=== PATIENT | female | born 1995 | race Caucasian/White ===

== ENCOUNTER 2019-12-01 12:25 | Outpatient (CLI) | payer OTHER, SELFPAY ==
--- NOTE | 2019-12-01 | US_ITS ---
WS: [id number] OBSTETRICAL ULTRASOUND COMPLETE HISTORY: ANATOMY COMPARISON: 09/13/2019 Single intrauterine gestation in Cephalic presentation. Cervix is Closed and normal length. Cervical length is 3.0 cm. Normal amount of amniotic fluid surrounds the fetus. Placenta: Posterior, no previa or abruption. Placenta grade 1 Heart: 144 BPM. Limited evaluation of four-chamber heart and outflow tracts. Anatomy: Intracranial structures and spine are poorly visualized due to position of the fetus. kidneys, stomach and urinary bladder are unremarkable. Abdominal wall, three-vessel cord and cord ins ertion site are normal. 4 extremities are present. profile: Limited. Gender: Female. measurements: BPD = 4.7 cm = 20w1d HC = 17.1 cm = 19w5d AC = 14.0 cm = 19w3d FL = 3.2 cm = 19w6d EFW: 304 g., Measurements are internally concordant. AGA by ultrasound: 19w6d MP by ultrasound: 04/20/2020 US/US OB >= 14 weeks fetus [id number] IMPRESSION: 1. Single intrauterine gestation of 19w6d with an EDC of 04/20/2020. Appropria te growth since the first trimester. 2. Limited evaluation of the heart, spine and intracranial structures du e to position of the fetus. Otherwise anatomy is normal.
== END 2019-12-01 12:26 | disposition home or self-care (01) ==
PROVIDERS: Family Provider Family Medicine; PCP Family Medicine; Visit Provider Family Medicine
DX: Z34.82 Encounter for supervision of other normal pregnancy, second trimester (principal)
CPT/HCPCS: 76805

== ENCOUNTER 2019-12-15 13:49 | Outpatient (CLI) | payer OTHER, SELFPAY ==
--- NOTE | 2019-12-15 13:59 | US_ITS ---
WS: [id number] OB ultrasound, 12/15/2019 Clinical Data: FOLLOW UP ON Heart, spine, INR ACRANIAL STRUCTURES Comparison: OB ultrasound, 12/01/2019. Findings: There is a single intrauterine in the vertex presentation. The placenta is posterior and gr florencia 0. There is a normal amount of amnionic fluid. The heart rate is 138 beats per minute. The cervix is 4.17 cm and closed. anatomy shows cervical spine, thoracic and lumbar spine, four-chamber heart, LVOT, RVOT, latera l cerebral ventricles, cerebellum and cisterna magna[place] [id number] Impression: 1. Single intrauterine in vertex presentation. 2. spine, four-chamber heart and intracerebral structures were seen. 3. heart rate 138 beats per minute.
== END 2019-12-15 13:50 | disposition home or self-care (01) ==
LOC: US 13:51
PROVIDERS: Family Provider Family Medicine; PCP Family Medicine; Visit Provider Family Medicine
DX: Z34.80 Encounter for supervision of other normal pregnancy, unspecified trimester (principal)
CPT/HCPCS: 76816

== ENCOUNTER 2020-02-19 22:50 | Outpatient (CLI) | payer OTHER, SELFPAY ==
[2020-02-19 23:11] VITALS: BP 117/66; PULSE 88; RESP 16; TEMP 36.9
[2020-02-19 23:22] VITALS: BMI 26.6
== END 2020-02-19 23:40 | disposition home or self-care (01) ==
LOC: OPOB 23:12 → OBGYN 23:13
PROVIDERS: PCP Family Medicine; Visit Provider Family Medicine
DX: O36.8190 Decreased fetal movements, unspecified trimester, not applicable or unspecified (principal); Z3A.00 Weeks of gestation of pregnancy not specified
CPT/HCPCS: 99211

== ENCOUNTER 2020-04-21 06:18 | Inpatient (IN) | payer OTHER, SELFPAY ==
[2020-04-20 23:10] VITALS: TEMP 37.3
[2020-04-20 23:12] VITALS: BMI 26.7
[2020-04-21] VITALS (52 sets, daily range): BP systolic 0–131; BP diastolic 0–76; PULSE 64–94; RESP 16–18; TEMP 36.5–37; O2SAT 89–98
[2020-04-21 00:20] LABS: Basophils % 0.2 %; Eosinophils # 0.2 10^3/uL (0.0-0.8); Hematocrit 36.3 % (37.0-47.0); Hemoglobin 11.8 g/dL (11.5-15.3); Lymphocytes # 3.5 10^3/uL (0.8-4.8); Lymphocytes % 20.6 %; Mean Corpuscular HGB Conc 32.5 g/dL (30.0-36.0); Mean Corpuscular Hemoglobin 29.9 pg (28.0-34.0); Mean Corpuscular Volume 92.1 fL (81-99); Mean Platelet Volume 10.6 fL (7.4-10.4); Monocytes # 1.1 10^3/uL (0.2-0.9); Monocytes % 6.4 %; Neutrophils # 12.28 10^3/uL (1.8-7.7); Neutrophils % 71.4 %; Nucleated Red Blood Cells % 0 %; Platelet Count 388 10^3/cmm (130-400); Red Blood Count 3.94 10^6/uL (4.1-5.3); Red Cell Distribution Width 12.9 % (12.1-15.1); White Blood Count 17.2 10^3/uL (4.0-10.0)
[2020-04-21] MEDS: metoclopramide 5 mg/mL SDV 2 mL 10 MG IV (00:33)
[2020-04-21] MEDS: dextrose 5%-lactated ringers 1,000 ML 125 ML IV (00:33)
--- NOTE | 2020-04-21 00:41 | P.HP_ITS ---
Providers/Chief Complaint Primary Care Provider: Julius Greer DO Chief Complaint: RUPTURED MEMBRANES History of Present Illness Miri Johnson is a 24 year old G2, P1 at 40.1 weeks gestation by LMP consistent with 8-week ultrasound. Her is complicated by asthma, father baby with Crohn's disease, history of gestational hypertension at 35 weeks, smoker of approximately 3 cigarettes/day. The patient has been having increased contractions over the last 2 days and they were every 10 minutes when at approximately 9:30 PM on the evening of 04/20/2020, she noted leakage of fluid. It continued to come with each contraction. She presented to labor and delivery triage and was found to be grossly ruptured. Upon presentation she was 3 cm dilated. The patient denies any bleeding, fevers, chest pain, cough, shortness of breath, dysuria. Medications/Allergies Home Medications Medication Instructions Recorded Confirmed Last Taken Type 02/19/20 02/19/20 08:00 History Allergies Allergy/AdvReac Type Severity Reaction Status Date / Time No Known Allergies Allergy Verified 02/19/20 23:20 PFSH Acute PFSH: Surgical History (Updated 04/21/20 @ 00:44 by Ervin Martinez MD) No history of previous surgery Social History (Updated 04/21/20 @ 00:45 by Ervin Martinez MD) Smoking and tobacco status: current every day smoker Alcohol intake: never Substance/Drug Use: never Marital status: Current occupational status: employed Vitals/I&O/Wt Weight last 48 hrs Weight 6.385 oz Physical Exam Narrative: EXAM NARRATIVE: General: Alert and oriented x3 Eyes: Pupils equal round and reactive to light and accommodation Mouth: Mucous membranes moist, pharynx non-erythematous Cardiac: Regular rate and rhythm without murmurs Lungs: Clear to auscultation bilaterally without wheezes, crackles or rhonchi Abdomen: Soft, non-tender, fundus consistent with gestational age Extremities: +1 pitting edema in the bilateral lower extremities Data : 04/20/20 23:30 A&P Assessment and plan (1) Intrauterine : Status: Acute (2) Smoker: Status: Acute (3) Asthma: Status: Acute Additional A&P Information Miri Johnson is a 24 year old G2, P1 at 40.1 weeks gestation by LMP consistent with 8-week ultrasound. Her is complicated by asthma, father baby with Crohn's disease, history of gestational hypertension at 35 weeks, smoker of approximately 3 cigarettes/day. The patient had spontaneous rupture of membranes at approximately 9:30 PM on 04/20/2020. She is neftali on her own every 3 to 6 minutes. She has made change from 3 cm to 5 cm dilation in 1 hour. We will continue to monitor and as long as she keeps making change on her own, we will not need to augment with Pi tocin. The patient wishes to go without an epidural if possible. Currently heart tones are in the mid 120s with moderate variability and good accelerations. These are consistent with a category 1 tracing. All questions were answered. Proceed with routine intrapartum management. The patient is GBS negative. Attestations Medical Necessity Statement*: The patient will be here for greater than 2 midnights due to routine intrapartum and management of labor and delivery. Coding Level of Care Code Acute Cardiac Monitor Technician for Santi Licona Diagnoses Intrauterine Z34.90 Smoker F17.200 Asthma J45.909
[2020-04-21] MEDS: lactated ringers 1,000 ML 999 ML IV ×2 (01:28→03:07)
--- NOTE | 2020-04-21 02:27 | P.ANESASSM_ITS ---
Pre-Anesthetic Assessment Pre-Anesthetic Assessment: Height/Weight: Height 1.75 m Weight 82.1 kg Pulse BP 67 114/64 04/21/20 02:08 04/21/20 02:08 Preop Diagnosis: labor Proposed Procedure: epidural Was Beta Rosalind taken within 24 hours: N/A Last Intake: 20:30 Social: Social History: No alcohol and No tobacco (1/2ppd) Pack years: 10 Exam: Pre-Anes Outpt Exam: alert, oriented x 3, clear to auscultation bilaterally and regular rate & rhythm Airway: Submandibular: WNL Cervical ROM: WNL MP: 2 Dentition: Full Pulmonary: Pulmonary: Asthma (2-3 episodes year) CV/HEM: CV/HEM: None reported : : None reported Hepatic: Hepatic: None reported GI: GI: GERD Comments: Metabolic: Metabolic: None reported Musc/skel: Musc/skel: None reported Neuropsych: Neuropsych: None reported Anesthetic Plan: ASA status: 2 Anesthesia: Anesthesia Evaluation and Eval. for regional block Risk of > 500 ml blood loss (7ml/kg in children): No Meds/Allergies Current Medications: Current Medications Generic Name Dose Route Start Last Admin Trade Name Freq PRN Reason Stop Dose Admin Dextrose/Lactated Ringer's 1,000 mls @ 125 m ls/hr 04/20/20 23:15 04/21/20 01:29 Dextrose 5%-Lact ated Ringers IV 0 mls/hr .Q8H [id number] Infusion PFSH Anesthesia PFSH: Surgical History (Updated 04/21/20 @ 00:44 by Ervin Martinez MD) No history of previous surgery Social History (Updated 04/21/20 @ 00:45 by Ervin Martinez MD) Smoking and tobacco status: current every day smoker Alcohol intake: never Substance/Drug Use: never Marital status: Current occupational status: employed Data Anesthesia CBC & Chem 7: 04/20/20 23:30 Other Labs: Laboratory Results - last 48 hr 04/20/20 23:30 WBC 17.2 H RBC 3.94 L Hgb 11.8 Hct 36.3 L MCV 92.1 MCH 29.9 MCHC 32.5 RDW 12.9 Plt Count 388 MPV 10.6 H Neut % (Auto) 71.4 Lymph % (Auto) 20.6 Humphreys % (Auto) 6.4 Eos % (Auto) 1.0 Baso % (Auto) 0.2 Neut # (Auto) 12.28 H Lymph # (Auto) 3.5 Humphreys # (Auto) 1.1 H Eos # (Auto) 0.2 Baso # (Auto) 0.0 Nucleated RBC % (auto) 0 Nucleated RBCs # 0.0 Cardiac Studies: No Data to Display
--- NOTE | 2020-04-21 03:15 | P.ANES_ITS ---
Anesthesia Procedures Procedure/Date: 04/21/20 Epidural: Time Out Performed: Yes Consents Signed: Procedure Consent Consent: requested by attending/covering physician and from patient Lumbar Level: L3-L4 Epidural position: sitting Epidural procedure: sterile prep of area (betadine), 1% lidocaine to numb the area (3ml), 18 g needle, neg for pa resthesia, test dose given, 1.5% xylocaine 1:200k epi (3ml), 0.2% Ropivacaine bolus ml (10ml), placed PCEA, no systemic response, sterile dressing applied, L.U.D. no apparent complications and 0.2% Ropiavacaine @ mls/hr (13ml/hr)
[2020-04-21] MEDS: oxytocin 30 UNIT/500 ML BAG 600 UNIT IV (06:15)
--- NOTE | 2020-04-21 06:32 | P.PCNOB_ITS ---
Delivery Note: Date of delivery: April 21, 2020 Pre-delivery diagnoses: 1. Intrauterine at 40.1 weeks gestation 2. Asthma Post-delivery diagnoses: 1. Intrauterine status post spontaneous vaginal delivery at 40.1 weeks gestation 2. Asthma 3. Delivery of healthy infant female weighing 7 pounds 9 ounces with Apgars of 9 and 10 Procedure: Spontaneous vaginal delivery Op report anesthesia: Epidural Estimated blood loss (mL): 75 Findings: 1. Delivery of healthy infant female weighing 7 pounds 9 ounces with Apgars of 9 and 10 2. Intact placenta with central umbilical cord insertion site. Pre-Delivery Course: Miri Johnson is a 24 year old G2 now P2 status post spontaneous vaginal delivery at 40.1 weeks gestation by LMP consistent with 8- week ultrasound. Her was complicated by asthma, father baby with Crohn's disease, history of gestational hypertension at 35 weeks, smoker of approximately 3 cigarettes/day. The patient had been having increased contractions over the last 2 days and they were every 10 minutes when at approximately 9:30 PM on the evening of 04/20/2020, she noted leakage of fluid. It continued to come with each contraction. She presented to labor and delivery triage and was found to be grossly ruptured. Upon presentation she was 3 cm dilated. The patient continued to make change on her own and was neftali every 3 to 6 minutes. The patient did not need augmentation with IV Pitocin. The patient made steady change and by 5:45 AM on 04/21/2020, the patient was complete. Delivery: The patient began pushing at 5:57 AM on 04/21/2020. The patient pushed well and the descended quickly. The was born in the OA position at 6:10 AM on 04/21/2020. A nuchal cord was present and reduced prior to delivery of the rest of the infant. The right shoulder was the anterior shoulder and delivered with ease. The rest of the infant delivered without complication. The mouth and nose were bulb suctioned by myself. The infant was crying immediately upon delivery. The was placed on the mother's chest where the nurses were waiting to care for her. The cord was clamped by myself and cut by the infant's father approximately 1 minute after delivery. Cord blood was obtained. The cord was then drained of blood and traction was placed on the umbilical cord. The placenta delivered without complication at 6:15 AM on 04/21/2020. The placenta was noted to be intact with a central umbilical cord insertion site. IV Pitocin was bolused. The uterus was noted to be firm and midline and there was very little bleeding. The cervix was inspected and no lacerations were noted. The vaginal wall was inspected and there were some mild abrasions without any tears. No suturing was necessary. Currently both the mother and infant are doing very well. A&P Assessment and plan (1) Intrauterine : Status: Acute (2) Smoker: Status: Acute (3) Asthma: Status: Acute Coding Level of Care Code Acute Heart Doctor for Chg Fwd Diagnoses Intrauterine Z34.90 Smoker F17.200 Asthma J45.909
[2020-04-21] MEDS: docusate sodium 100 mg Capsule PO (09:50)
[2020-04-21] MEDS: prenatal vitamin Capsule 1 CAP PO (09:50)
[2020-04-21 20:31] LABS: Hematocrit 34.8 % (37.0-47.0); Hemoglobin 11.7 g/dL (11.5-15.3); Mean Corpuscular HGB Conc 33.6 g/dL (30.0-36.0); Mean Corpuscular Hemoglobin 31.4 pg (28.0-34.0); Mean Corpuscular Volume 93.3 fL (81-99); Mean Platelet Volume 10.2 fL (7.4-10.4); Platelet Count 350 10^3/cmm (130-400); Red Blood Count 3.73 10^6/uL (4.1-5.3); Red Cell Distribution Width 13.1 % (12.1-15.1); White Blood Count 17.8 10^3/uL (4.0-10.0)
[2020-04-22 06:12] VITALS: BP 108/64; PULSE 73; RESP 18; TEMP 36.5
[2020-04-22] MEDS: prenatal vitamin Capsule 1 CAP PO (08:59)
[2020-04-22] MEDS: docusate sodium 100 mg Capsule PO (08:59)
--- NOTE | 2020-04-22 10:03 | P.DS_ITS ---
Discharge Providers Date of Admission: 04/21/20 06:18 Date of Discharge: April 22, 2020 Attending Provider at Admission: Ervin Martinez MD Attending Provider at Discharge: Ervin Martinez MD Primary Care Provider: Julius Greer DO Diagnoses at Discharge Discharge Diagnosis (1) Intrauterine : Status: Acute (2) Smoker: Status: Acute (3) Asthma: Status: Acute Reason for Visit Reason for Visit: RUPTURED MEMBRANES Hospital Course Hospital Course: Miri Johnson is a 24 year old G2 now P2 status post spontaneous vaginal delivery at 40.1 weeks gestation by LMP consistent with 8- week ultrasound. Her was complicated by asthma, father of baby with Crohn's disease, history of gestational hypertension at 35 weeks, smoker of approximately 3 cigarettes/day. The patient had been having increased contractions over the last 2 days and they were every 10 minutes when at approximately 9:30 PM on the evening of 04/20/2020, she noted leakage of fluid. It continued to come with each contraction. She presented to labor and delivery triage and was found to be grossly ruptured. Upon presentation she was 3 cm dilated. The patient continued to make change on her own and was neftali every 3 to 6 minutes. The patient did not need augmentation with IV Pitocin. The patient made steady change and by 5:45 AM on 04/21/2020, the patient was complete. The patient began pushing at 5:57 AM on 04/21/2020. The patient pushed well and the descended quickly. The was born in the OA position at 6:10 AM on 04/21/2020. A nuchal cord was present and reduced prior to delivery of the rest of the infant. The right shoulder was the anterior shoulder and delivered with ease. The rest of the delivered without complication. The mouth and nose were bulb suctioned by myself. The was crying immediately upon delivery. The infant was placed on the mother's chest where the nurses were waiting to care for her. The cord was clamped by myself and cut by the infant's father approximately 1 minute after delivery. Cord blood was obtained. The cord was then drained of blood and traction was placed on the umbilical cord. The placenta delivered without complication at 6:15 AM on 04/21/2020. The placenta was noted to be intact with a central umbilical cord insertion site. IV Pitocin was bolused. The uterus was noted to be firm and midline and there was very little bleeding. The cervix was inspected and no lacerations were noted. The vaginal wall was inspected and there were some mild abrasions without any tears. No suturing was necessary. the patient has been doing very well. She is ambulating, voiding, passing gas and tolerating food by mouth. Her bleeding is decreasing well. Her pain is well controlled with Motrin alone. The patient was given routine discharge instructions. She will follow-up with me at 6 weeks . All questions were answered. The patient is in agreement with discharge home at this time. Physical Exam Narrative: EXAM NARRATIVE: General: Alert and oriented x3 Eyes: Pupils equal round and reactive to light and accommodation Mouth: Mucous membranes moist, pharynx non-erythematous Cardiac: Regular rate and rhythm without murmurs Lungs: Clear to auscultation bilaterally without wheezes, crackles or rhonchi Abdomen: Soft, mild tenderness over the uterus, fundus is firm and 3 cm below the umbilicus. Extremities: Trace pitting edema in the bilateral lower extremities Discharge Data Data Completed and Pending: Labs from last 24 hours 04/21/20 20:15 WBC 17.8 H RBC 3.73 L Hgb 11.7 Hct 34.8 L MCV 93.3 MCH 31.4 MCHC 33.6 RDW 13.1 Plt Count 350 MPV 10.2 Vitals: Last Vital Signs Temp 97.7 F 04/22/20 06:12 Pulse 73 04/22/20 06:12 Resp 18 04/22/20 06:12 BP 108/64 04/22/20 06:12 Pulse Ox 97 04/21/20 03:15 Discharge Plan Discharge Patient Disposition: Home, Self-Care Condition: Good Prescriptions: New -U 106.5-1 mg Capsule 1 cap PO DAILY Qty: 30 RF: 0 ibuprofen 800 mg Tablet 800 mg PO TID Qty: 60 RF: 0 Continued RF: 0 Discharge Orders: Discharge Order (Routine); Ordered 04/22/20 Ordered By: Ervin Martinez Referrals: Ervin Martinez MD [Physician] - 6 Weeks Discharge Diet: Regular Discharge Activity: Limit activity as instructed Patient Instructions: Your Baby (GEN), Expression, Collection and Storage of Breastmilk (GEN), How to Hold and Breastfeed Your Baby (GEN), and Nipple Soreness (GEN), Breast Fullness Versus Breast Engorgement (GEN), How to Increase Your Milk Supply (GEN), and Your Diet (GEN), Breast Care for the Breast Feeding Mother (GEN), Vaginal Delivery (DC), OB Discharge Report, OB Food/Drug Interaction Guide, OB Your Care - [facility] Activity Restrictions/Additional Instructions: Nothing per vagina for 6 weeks. No swimming or baths for 6 weeks. Showers are okay. Discharge Attestations Time Spent in Discharge Care*: less than 30 min Quality Metrics Clinical Quality Measures During this hospital stay, did patient experience: None Coding Level of Care Code Acute Phlebotomy Technologist for Chg Fwd Diagnoses Intrauterine Z34.90 Smoker F17.200 Asthma J45.909
[2020-04-22 12:03] VITALS: BP 117/71; PULSE 73; RESP 16; TEMP 36.7
== END 2020-04-22 12:21 | disposition home or self-care (01) | DRG 807 ==
LOC: OPOB 06:18 → OBGYN 06:18
PROVIDERS: Admitting Provider Family Medicine; PCP Family Medicine; Visit Provider Family Medicine
DX: O42.02 Full-term premature rupture of membranes, onset of labor within 24 hours of rupture (principal); Z37.0 Single live birth; O99.334 Smoking (tobacco) complicating childbirth; F17.210 Nicotine dependence, cigarettes, uncomplicated; Z3A.40 40 weeks gestation of pregnancy; O99.52 Diseases of the respiratory system complicating childbirth; J45.909 Unspecified asthma, uncomplicated; O69.1XX0 Labor and delivery complicated by cord around neck, with compression, not applicable or unspecified
CPT/HCPCS: 12345; 36415; 59025; 59409; 83986; 85025; 85027; 99211; J2765; J2795

== ENCOUNTER → 2023-03-03 08:42 | Outpatient (BNVA) | payer MEDICAID, SELFPAY | PROVIDERS: PCP Family Medicine; Visit Provider Family Medicine | DX: R53.83 Other fatigue (principal); Z00.00 Encounter for general adult medical examination without abnormal findings; N89.8 Other specified noninflammatory disorders of vagina; L70.9 Acne, unspecified; L98.9 Disorder of the skin and subcutaneous tissue, unspecified; E03.9 Hypothyroidism, unspecified | CPT/HCPCS: 80053; 80061; 82607; 82672; 83036; 84144; 84402; 84443; 85025 ==

== ENCOUNTER → 2023-04-27 12:46 | Outpatient (BNVA) | payer MEDICAID, SELFPAY | PROVIDERS: PCP Family Medicine; Visit Provider Family Medicine | DX: L98.9 Disorder of the skin and subcutaneous tissue, unspecified (principal) | CPT/HCPCS: 88304 ==

== ENCOUNTER → 2023-08-21 13:41 | Outpatient (BNVA) | payer MEDICAID, SELFPAY | PROVIDERS: PCP Family Medicine; Visit Provider Nurse Practitioner Family | DX: R50.9 Fever, unspecified (principal); J02.9 Acute pharyngitis, unspecified; H66.91 Otitis media, unspecified, right ear; H60.91 Unspecified otitis externa, right ear | CPT/HCPCS: 87071; 87880 ==